=== PATIENT | male | born 1950 | race African-American/Black ===

== ENCOUNTER 2019-04-11 20:22 | Inpatient (IN) | payer OTHER ==
[~2019-04-11] VITALS: Ht 175.3 cm; Wt 86.3 kg
[2019-04-11 20:42] LABS: BASOPHILS % 0.6 % (0.0-2.0); EOSINOPHILS % 0.3 % (0.0-5.0); LYMPHOCYTES % 11.3 % (20.0-50.0); MEAN CORPUSCULAR HEMOGLOBIN 29.6 pg (28.0-32.0); MEAN CORPUSCULAR VOLUME 88.3 fL (80.0-94.0); MEAN PLATELET VOLUME 9.5 fl (7.4-10.4); MONOCYTES % 6.9 % (2.0-8.0); NEUTROPHILS % 80.9 % (40.0-76.0); PLATELET 195 x1000/uL (130-400); RED BLOOD CELL COUNT 2.24 mill/uL (4.7-6.1)
[2019-04-11 20:43] LABS: HEMOGLOBIN. 6.6 g/dL (14.0-18.0)
[2019-04-11 20:44] LABS: HEMATOCRIT. 19.8 % (42.0-52.0)
[2019-04-11 20:49] LABS: INR 1.2; PROTHROMBIN TIME 12.5 sec (9.6-11.0)
[2019-04-11 20:57] LABS: CHLORIDE 108 mEq/L (98-107)
[2019-04-11 21:00] LABS: ETHANOL BLOOD < 10 mg/dL
[2019-04-11 21:03] LABS: LDL CHOLESTEROL 49 mg/dL (5-100)
[2019-04-11] MEDS ORDERED: IOHEXOL-350 100 ML BOTTLE ONE (21:39)
[2019-04-11 21:42] LABS: CLARITY URINE CLOUDY (CLEAR); COLOR URINE RED (YELLOW); KETONES URINE NEGATIVE (NEGATIVE); LEUKOCYTE ESTERASE URINE 2+ (NEGATIVE); NITRITE URINE NEGATIVE (NEGATIVE); OCCULT BLOOD URINE 3+ (NEGATIVE); PROTEIN URINE 1+ (NEGATIVE); SPECIFIC GRAVITY URINE 1.023 (1.005-1.030)
[2019-04-11 22:08] LABS: *AMPHETAMINES SCREEN URINE NEGATIVE (NEGATIVE); *BARBITURATES SCREEN URINE NEGATIVE (NEGATIVE); *BENZODIAZEPINES SCREEN URINE NEGATIVE (NEGATIVE); *COCAINE SCREEN URINE NEGATIVE (NEGATIVE); CANNABINOID URINE SCREEN NEGATIVE (NEGATIVE); METHADONE URINE SCREEN NEGATIVE (NEGATIVE); OPIATES URINE SCREEN NEGATIVE (NEGATIVE); PHENCYCLIDINE URINE SCREEN NEGATIVE (NEGATIVE)
[2019-04-11] MEDS ORDERED: CEFTRIAXONE 1 G PREMIX 50 ML IV NR (22:30)
[2019-04-11] MEDS ORDERED: HYDROCODONE/ACETAMINOPHEN 10/325MG TABLET PO PRN (23:00)
[2019-04-11] MEDS ORDERED: CLONIDINE 0.1MG TABLET PO PRN (23:00)
[2019-04-11] MEDS ORDERED: MORPHINE SULFATE 2 MG/ML CPJ (NOT FOR IM USE) IV PRN (23:00)
[2019-04-11] MEDS ORDERED: DIPHENHYDRAMINE 50MG/ML VIAL IV PRN (23:00)
[2019-04-11] MEDS ORDERED: ONDANSETRON HCL 4MG/2ML INJ IV PRN (23:00)
[2019-04-11] MEDS ORDERED: ACETAMINOPHEN 325MG TABLET PO PRN (23:00)
[2019-04-11] MEDS ORDERED: NA PHOS,M-B/NA PHOS,DI-BA ENEMA 118ML PR PRN (23:00)
[2019-04-11] MEDS ORDERED: GUAIFENESIN 200MG/10ML SUGAR FREE UDC PO PRN (23:00)
[2019-04-11] MEDS ORDERED: LORAZEPAM 2MG/ML CPJ IV PRN (23:00)
[2019-04-11] MEDS ORDERED: DOCUSATE SODIUM 100MG CAPSULE PO PRN (23:00)
[2019-04-11] MEDS ORDERED: IPRATROPIUM/ALBUTEROL 0.5-3(2.5)MG/3ML NEB NEB PRN (23:00)
[2019-04-11] MEDS ORDERED: MAGNESIUM/ALUMINUM HYDROXIDE/SIMETHICONE 30ML UDC PO PRN (23:00)
[2019-04-11] MEDS ORDERED: KCL 20MEQ/100ML PREMIX 100 ML IV NR (23:00)
[2019-04-11 23:37] VITALS: BP 168/89
[2019-04-12] VITALS (16 sets, daily range): BP systolic 118–166; BP diastolic 68–99
[2019-04-12] MEDS: DEXTROSE 5% WATER 1,000 ML IV SCH ×2 (00:36→12:38)
[2019-04-12] MEDS: SODIUM CHLORIDE 0.9% INJ 3ML FLUSH IVF SCH ×3 (05:51→22:36)
[2019-04-12] MEDS ORDERED: POTASSIUM CHLORIDE 20MEQ TABLET SR PO SCH (08:00)
[2019-04-12] MEDS ORDERED: METHYLPREDNISOLONE SOD SUCC 40 MG/ML VIAL IV SCH (08:00)
[2019-04-12] MEDS: PANTOPRAZOLE SODIUM 40 MG/VIAL IV SCH ×2 (09:15→20:37)
[2019-04-12 09:22] LABS: BASOPHILS % 0.3 % (0.0-2.0); EOSINOPHILS % 0.1 % (0.0-5.0); HEMATOCRIT. 22.9 % (42.0-52.0); HEMOGLOBIN. 7.8 g/dL (14.0-18.0); LYMPHOCYTES % 12.8 % (20.0-50.0); MEAN CORPUSCULAR HEMOGLOBIN 30.5 pg (28.0-32.0); MEAN CORPUSCULAR VOLUME 89.8 fL (80.0-94.0); MEAN PLATELET VOLUME 9.5 fl (7.4-10.4); MONOCYTES % 5.6 % (2.0-8.0); NEUTROPHILS % 81.2 % (40.0-76.0); PLATELET 186 x1000/uL (130-400); RED BLOOD CELL COUNT 2.55 mill/uL (4.7-6.1); RED CELL DISTRIBUTION WIDTH 15.7 % (11.6-14.6)
[2019-04-12] MEDS: METOPROLOL TARTRATE 25MG TABLET PO SCH ×2 (12:38→20:37)
[2019-04-12] MEDS: AMLODIPINE 10MG TABLET PO SCH (12:38)
[2019-04-12] MEDS: IPRATROPIUM/ALBUTEROL 0.5-3(2.5)MG/3ML NEB HHN SCH ×3 (13:25→20:57)
[2019-04-12] MEDS: CEFTRIAXONE 1 G PREMIX 50 ML IV SCH (19:27)
[2019-04-12] MEDS ORDERED: CEFTRIAXONE 1 G PREMIX 50 ML IV SCH (23:00)
[2019-04-12 23:18] LABS: CHLORIDE 109 mEq/L (98-107)
[2019-04-12 23:25] LABS: LDL CHOLESTEROL 55 mg/dL (5-100)
[2019-04-12 23:26] LABS: HDL CHOLESTEROL 54 mg/dL (40-59); TOTAL IRON BINDING CAPACITY 238 ug/dL (250-450)
[2019-04-12 23:28] LABS: HEMATOCRIT 22.7 % (42.0-52.0); HEMOGLOBIN 7.6 g/dL (14.0-18.0); MEAN CORPUSCULAR HEMOGLOBIN 30.1 pg (28.0-32.0); MEAN CORPUSCULAR VOLUME 89.8 fL (80.0-94.0); PLATELET 201 x1000/uL (130-400); RED BLOOD CELL COUNT 2.53 mill/uL (4.7-6.1); RED CELL DISTRIBUTION WIDTH 16.3 % (11.6-14.6)
[2019-04-12 23:29] LABS: CREATINE KINASE 105 IU/L (39-308); CREATINE KINASE MB FRACTION 1.1 ng/mL (0.5-3.6)
[2019-04-12 23:48] LABS: VITAMIN B12 SERUM 810 pg/mL (211-911)
[2019-04-13] VITALS (18 sets, daily range): BP systolic 122–165; BP diastolic 48–97
[2019-04-13] MEDS: IPRATROPIUM/ALBUTEROL 0.5-3(2.5)MG/3ML NEB HHN SCH ×7 (00:16→23:23)
[2019-04-13] MEDS: DEXTROSE 5% WATER 1,000 ML IV SCH ×2 (00:37→14:16)
[2019-04-13 01:10] LABS: CARCINO EMBRYONIC ANTIGEN < 0.5 ng/ml
[2019-04-13] MEDS: SODIUM CHLORIDE 0.9% INJ 3ML FLUSH IVF SCH ×3 (05:03→21:53)
[2019-04-13 09:24] LABS: HEMATOCRIT 21.2 % (42.0-52.0); HEMOGLOBIN 7.2 g/dL (14.0-18.0); MEAN CORPUSCULAR HEMOGLOBIN 30.2 pg (28.0-32.0); MEAN CORPUSCULAR VOLUME 89.1 fL (80.0-94.0); PLATELET 186 x1000/uL (130-400); RED BLOOD CELL COUNT 2.38 mill/uL (4.7-6.1)
[2019-04-13] MEDS ORDERED: DIATR MEGLU/DIATRIZOATE SOLN 30ML PO SCH (09:30)
[2019-04-13 09:36] LABS: CHLORIDE 107 mEq/L (98-107)
[2019-04-13] MEDS: METOPROLOL TARTRATE 25MG TABLET PO SCH ×2 (10:05→21:53)
[2019-04-13] MEDS: PANTOPRAZOLE SODIUM 40 MG/VIAL IV SCH ×2 (10:05→21:52)
[2019-04-13] MEDS: AMLODIPINE 10MG TABLET PO SCH (10:05)
[2019-04-13] MEDS ORDERED: IPRATROPIUM/ALBUTEROL 0.5-3(2.5)MG/3ML NEB HHN PRN (14:30)
[2019-04-13] MEDS ORDERED: FUROSEMIDE 40MG/4ML VIAL IVP NR (14:40)
[2019-04-13] MEDS ORDERED: IOHEXOL-350 100 ML BOTTLE ONE (17:43)
[2019-04-13] MEDS: BUDESONIDE 0.5MG/2ML NEB HHN SCH (20:48)
[2019-04-13] MEDS: CEFTRIAXONE 1 G PREMIX 50 ML IV SCH (21:53)
[2019-04-14] VITALS (15 sets, daily range): BP systolic 145–170; BP diastolic 64–102
[2019-04-14 00:52] LABS: HEMATOCRIT 25.3 % (42.0-52.0); HEMOGLOBIN 8.6 g/dL (14.0-18.0)
[2019-04-14] MEDS: IPRATROPIUM/ALBUTEROL 0.5-3(2.5)MG/3ML NEB HHN SCH ×5 (04:11→20:17)
[2019-04-14] MEDS: DEXTROSE 5% WATER 1,000 ML IV SCH (04:17)
[2019-04-14] MEDS: SODIUM CHLORIDE 0.9% INJ 3ML FLUSH IVF SCH ×3 (06:18→23:00)
[2019-04-14] MEDS: PANTOPRAZOLE SODIUM 40 MG/VIAL IV SCH ×2 (09:32→20:31)
[2019-04-14] MEDS: AMLODIPINE 10MG TABLET PO SCH (09:33)
[2019-04-14] MEDS: METOPROLOL TARTRATE 25MG TABLET PO SCH ×2 (09:33→20:32)
[2019-04-14 10:40] LABS: HEMATOCRIT 25.9 % (42.0-52.0); HEMOGLOBIN 8.7 g/dL (14.0-18.0); MEAN CORPUSCULAR HEMOGLOBIN 30.3 pg (28.0-32.0); PLATELET 186 x1000/uL (130-400); RED BLOOD CELL COUNT 2.88 mill/uL (4.7-6.1); RED CELL DISTRIBUTION WIDTH 15.8 % (11.6-14.6)
[2019-04-14] MEDS ORDERED: LOSARTAN POTASSIUM 25 MG TABLET PO SCH (11:30)
[2019-04-14] MEDS: FUROSEMIDE 40MG/4ML VIAL IVP SCH ×2 (11:47→18:23)
[2019-04-14] MEDS: BUDESONIDE 0.5MG/2ML NEB HHN SCH (12:33)
[2019-04-14] MEDS ORDERED: CEFTRIAXONE 1,000 MG in DEXTROSE 5% WATER 50 ML IV SCH ×4 (20:00)
== END 2019-04-15 00:21 | disposition short-term general hospital (02) | DRG 64 ==
LOC: ER 20:22 → 3WST 22:10 → EDBEDREQ 22:15 → EDBEDREQTM 22:15 → ENRESERV 22:50 → 3WST 04-12 00:02
PROVIDERS: ADMIT Internal Medicine; ATTEND Internal Medicine
PROC: 30233N1 Transfusion of Nonautologous Red Blood Cells into Peripheral Vein, Percutaneous Approach (ICD-10-PCS; principal; 2019-04-12)
DX: I63.9 Cerebral infarction, unspecified (principal); J96.00 Acute respiratory failure, unspecified whether with hypoxia or hypercapnia; E43 Unspecified severe protein-calorie malnutrition; G93.40 Encephalopathy, unspecified; E87.0 Hyperosmolality and hypernatremia; N39.0 Urinary tract infection, site not specified; K92.2 Gastrointestinal hemorrhage, unspecified; D62 Acute posthemorrhagic anemia; I50.9 Heart failure, unspecified; R29.810 Facial weakness; N40.0 Benign prostatic hyperplasia without lower urinary tract symptoms; J44.9 Chronic obstructive pulmonary disease, unspecified; K21.9 Gastro-esophageal reflux disease without esophagitis; I11.0 Hypertensive heart disease with heart failure; E87.6 Hypokalemia; K74.60 Unspecified cirrhosis of liver; E53.8 Deficiency of other specified B group vitamins; D64.9 Anemia, unspecified; Z60.2 Problems related to living alone; Z68.28 Body mass index [BMI] 28.0-28.9, adult; Z79.899 Other long term (current) drug therapy; Z91.19 Patient's noncompliance with other medical treatment and regimen; Z87.891 Personal history of nicotine dependence; Z88.0 Allergy status to penicillin
CPT/HCPCS: 36415; 70496; 70551; 71045; 71275; 74178; 76700; 80048; 80061; 80305; 80320; 81003; 82105; 82140; 82248; 82378; 82550; 82553; 82607; 82746; 83036; 83540; 83550; 83721; 83880; 84153; 84439; 84443; 84484; 85014; 85018; 85027; 86850; 86900; 86920; 92610; 93005; 93970; 94640; 95816; 96365; 97162; 97166; 99285; A6261; C9113; J0696; J1940; J2405; J3480; J7040; J7060; J7070; J7620; P9016; Q9963; Q9967; A4315; G0103; G0480